=== PATIENT | male | born 1960 | race Caucasian/White ===

== ENCOUNTER 2017-08-03 23:54 | Emergency (ER) | payer OTHER, BC ==
[2017-08-03] MEDS ORDERED: Ketorolac 10 MG Tab PO ONE (23:55)
[2017-08-03] MEDS ORDERED: Acetaminophen/HYDROcodone 325-5 MG Tab PO ONE (23:55)
[2017-08-03 23:58] VITALS: BP 187/99
[2017-08-04] MEDS ORDERED: fentaNYL 100 MCG/2 ML SDV IVPUSH ONE (00:08)
[2017-08-04] MEDS ORDERED: Lactated Ringers 1,000 ML IV ONE (00:09)
[2017-08-04] MEDS ORDERED: Ondansetron 4 MG/2 ML SDV IVPUSH STA (00:19)
--- NOTE | 2017-08-04 00:25 | EDM.PDOC ---
ED HPI GENERAL MEDICAL PROBLEM - General Chief Complaint: Abdominal Pain Stated Complaint: RLQ pain Time Seen by Provider: 08/04/17 00:05 Source of Information: Reports: Patient History Limitations: Reports: No Limitations - History of Present Illness INITIAL COMMENTS - FREE TEXT/NARRATIVE: Manolo is a 57 yo male who presents to the ER with complaints of right lower quadrant pain radiating from the testicle to his flank area. States symptoms started around 9:00pm tonight. [place] fine all day up until onset. States he became nauseated from the pain but no vomiting. States the pain continued to intensify and couldn't take it anymore, which brought him into the ER. States he feels he has the urge to urinate but admits it is mostly just dribbles. Location: Reports: Abdomen, Back (right groin radiating around to right flank), Pelvis Associated Symptoms: Reports: Diaphoresis, Nausea/Vomiting (nauseated). 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 Denies: High Cholesterol Respiratory History: Reports: None Gastrointestinal History: Reports: Cholelithiasis Genitourinary History: Reports: None Musculoskeletal History: Reports: None Neurological History: Reports: None Psychiatric History: Reports: None Social & Family History - Tobacco Use Smoking Status *Q: Never Smoker - Alcohol Use Alcohol Use History: Yes Alcohol Use Frequency: Socially - Recreational Drug Use Recreational Drug Use: No - Living Situation & Occupation Living situation: Reports: , with Spouse Occupation: Employed ED ROS GENERAL - Review of Systems Review Of Systems: See Below Constitutional: Reports: Diaphoresis. Denies: Fever, Chills HEENT: Reports: No Symptoms Respiratory: Reports: No Symptoms Cardiovascular: Reports: No Symptoms GI/Abdominal: Reports: Abdominal Pain (right lower quadrant), Nausea. Denies: Bloody Stool, Diarrhea, Vomiting : Reports: Flank Pain, Urgency, Urinary Retention. Denies: Hematuria Musculoskeletal: Reports: No Symptoms Skin: Reports: No Symptoms ED EXAM, RENAL/ - Physical Exam Exam: See Below Exam Limited By: No Limitations General Appearance: Alert, Mild Distress, Moderate Distress Ears: Normal External Exam, Normal Canal, Normal TMs Nose: Normal Inspection, No Blood Throat/Mouth: Normal Inspection, Normal Lips, Normal Teeth, Normal Gums, Normal Oropharynx, Normal Voice, No Airway Compromise Head: Atraumatic, Normocephalic Neck: Normal Inspection, Supple, Non-Tender Respiratory/Chest: No Respiratory Distress, Lungs Clear, Normal Breath Sounds, No Accessory Muscle Use Cardiovascular: Regular Rate, Rhythm, No Murmur GI/Abdominal: Normal Bowel Sounds, No Organomegaly, No Mass, Pelvis Stable, Tender (right lower quadrant/suprapubic) Back Exam: CVA Tenderness (R). No: CVA Tenderness (L) Neurological: Alert, Oriented, Normal Cognition Psychiatric: Normal Affect, Normal Mood Skin Exam: Warm, Dry, Intact, Normal Color, No Rash Course - Vital Signs Last Recorded V/S: Last Vital Signs Temp 98.5 F 08/03/17 23:55 Pulse 69 08/03/17 23:55 Resp 22 H 08/03/17 23:55 BP 187/99 H 08/03/17 23:55 Pulse Ox 98 08/03/17 23:55 - Orders/Labs/Meds Orders: Active Orders 24 hr Category Date Time Status Abdomen Pelvis wo Cont [CT] Stat Exams 08/04/17 00:50 Ordered UA W/MICROSCOPIC [URIN] Stat Lab 08/04/17 00:08 Uncollected Labs: Laboratory Tests 08/04/17 08/04/17 08/04/17 Range/Units 00:08 00:08 00:50 WBC 10.3 H (5.0-10.0) 10^3/uL RBC 4.32 L (4.50-6.00) 10^6/uL Hgb 14.2 (14.0-18.0) g/dL Hct 39.2 L (40.0-54.0) % MCV 90.7 (82.0-94.0) fL MCH 32.9 H (27.0-32.0) pg MCHC 36.2 (33.0-38.0) g/dL RDW Coeff of Anum 13.1 (11.0-15.0) % Plt Count 180 (150-400) 10^3/uL Neut % (Auto) 75.8 (35-85) % Lymph % (Auto) 13.2 (10-55) % [place] % (Auto) 9.7 (0-16) % Eos % (Auto) 1.0 (0-5) % Baso % (Auto) 0.3 (0-3) % Neut # (Auto) 7.80 H (1.80-7.00) 10^3/uL Lymph # (Auto) 1.36 (1.00-4.80) 10^3/uL [place] # (Auto) 1.00 H (0.00-0.80) 10^3/uL Eos # (Auto) 0.10 (0.00-0.45) 10^3/uL Baso # (Auto) 0.03 10^3/uL Sodium 141 (136-145) mEq/L Potassium 3.8 (3.5-5.0) mEq/L Chloride 104 (98-106) mEq/L Carbon Dioxide 27 (21-32) mmol/L BUN 16 (7-18) mg/dL Creatinine 1.3 (0.7-1.3) mg/dL Est Cr Clr Drug Dosing 56.57 mL/min Estimated GFR (MDRD) 57 L (>=60) mL/min Glucose 134 H D (75-99) mg/dL Calcium 8.5 (8.4-10.1) mg/dL Total Bilirubin 2.8 H (0.0-1.0) mg/dL AST 23 (15-37) U/L ALT 25 (12-78) U/L Alkaline Phosphatase 82 (46-116) U/L C-Reactive Protein 0.3 (0.2-0.8) mg/dL Total Protein 7.4 (6.4-8.2) g/dL Albumin 4.0 (3.4-5.0) g/dL Amylase 39 (25-115) U/L Urine Color Yellow (YELLOW) Urine Appearance Clear (CLEAR) Urine pH 5.0 (4.5-8.0) Ur Specific [place] >= 1.030 H (1.003-1.020) Urine Protein Trace H (NEGATIVE) mg/dL Urine Glucose (UA) Negative (NEGATIVE) mg/dL Urine Ketones Trace H (NEGATIVE) mg/dL Urine Occult Blood Large H (NEGATIVE) Urine Nitrite Negative (NEGATIVE) Urine Bilirubin Negative (NEGATIVE) Urine Urobilinogen 0.2 (0.2-1.0) EU/dL Ur Leukocyte Esterase Negative (NEGATIVE) Meds: Medications Discontinued Medications Generic Name Dose Route Start Last Admin Trade Name Bren PRN Reason Stop Dose Admin Hydrocodone Bitart/Acetaminophen 2 packet 08/04/17 01:38 Take Home: Acetaminophen/Hydrocod, 2 Tab Pack PO 08/04/17 01:39 ONETIME ONE Fentanyl 50 mcg 08/04/17 00:08 08/04/17 00:15 Sublimaze IVPUSH 08/04/17 00:09 50 mcg ONETIME ONE Administration Lactated Ringer's 1,000 mls @ 999 mls/hr 08/04/17 00:09 08/04/17 00:43 Ringers, Lactated IV 08/04/17 01:09 999 mls/hr .BOLUS ONE Administration Ketorolac Tromethamine 30 mg 08/04/17 00:30 08/04/17 00:44 Toradol IVPUSH 08/04/17 00:31 30 mg ONETIME ONE Administration Ketorolac Tromethamine 1 packet 08/04/17 01:38 Take Home: Ketorolac 10 Mg, 4 Tab Pack PO 08/04/17 01:39 ONETIME ONE Ondansetron HCl 8 mg 08/04/17 00:19 08/04/17 00:46 Zofran IVPUSH 08/04/17 00:20 8 mg NOW STA Administration Tamsulosin HCl 0.4 mg 08/04/17 00:51 08/04/17 00:55 Flomax PO 08/04/17 00:52 0.4 mg ONETIME ONE Administration - Re-Assessments/Exams Free Text/Narrative Re-Assessment/Exam: Manolo has been doing well in the ER. CT scan reviewed and appears to be a 3.3mm stone at the ureterovesical junction. Departure - Departure Time of Disposition: 02:04 Disposition: Home, Self-Care 01 Condition: Good Clinical Impression: Kidney stone on right side - Discharge Information Instructions: Kidney Stones, [facility] Forms: ED Department Discharge Additional Instructions: 1) [place] 5/325 - 1 to 2 tablets every 6 hours as needed for moderate pain 2) Toradol 10mg - 1 tablet every 6 hours for pain 3) Zofran 4mg - 1 tablet every 4 hours as needed for nausea 4) Flomax 0.4mg - 1 tablet daily until passing of stone 5) If any fevers, worsening symptoms, increased pain - advise returning to ER 6) Strain urine, if stone passes, recommend bringing in for analysis - Problem List & Annotations (1) Kidney stone on right side SNOMED Code(s): 69864981 Code(s): N20.0 - CALCULUS OF KIDNEY Status: Acute - Problem List Review Problem List Initiated/Reviewed/Updated: Yes - My Orders Last 24 Hours: My Active Orders 08/04/17 00:08 UA W/MICROSCOPIC [URIN] Stat 08/04/17 00:50 Abdomen Pelvis wo Cont [CT] Stat - Assessment/Plan Last 24 Hours: My Active Orders 08/04/17 00:08 UA W/MICROSCOPIC [URIN] Stat 08/04/17 00:50 Abdomen Pelvis wo Cont [CT] Stat Plan: See course and additional instructions. Radiologist confirmed stone at the UV junction. Urine strainer to be sent home with Manolo. Medications and discharge instructions discussed into detail with Manolo and his . Advised if any complications or concerns to return to the emergency room.
[2017-08-04] MEDS ORDERED: Ketorolac 30 MG/ML SDV IVPUSH ONE (00:30)
[2017-08-04] MEDS ORDERED: Tamsulosin 0.4 MG Cap.ER PO ONE (00:51)
[2017-08-04] MEDS ORDERED: Take Home: Acetaminophen/HYDROcodone 325-5 MG, 2 Tab Pack PO ONE (01:38)
[2017-08-04] MEDS ORDERED: Take Home: Ketorolac 10 MG Tab, 4 Tab Pack PO ONE (01:38)
== END 2017-08-04 02:25 | disposition home or self-care (01) ==
LOC: CC.ED 23:54
DX: N13.2 Hydronephrosis with renal and ureteral calculous obstruction (principal); I10 Essential (primary) hypertension; Z79.82 Long term (current) use of aspirin
CPT/HCPCS: 36415; 74176; 80053; 81003; 82150; 85025; 86140; 96361; 96374; 96375; 99284; A9270; J1885; J2405; J3010; J7120

== ENCOUNTER 2025-03-04 20:59 | Emergency (ER) | payer OTHER, BC ==
[2025-03-04 21:04] VITALS: BP 135/68; PULSE 81
[2025-03-04] MEDS: Take Home: Cyclobenzaprine 10 MG Tab, 4 Tab Pack PO ONE (21:55)
== END 2025-03-04 22:05 | disposition home or self-care (01) ==
LOC: CC.ED 20:59
DX: S56.912A Strain of unspecified muscles, fascia and tendons at forearm level, left arm, initial encounter (principal); I10 Essential (primary) hypertension; Z79.899 Other long term (current) drug therapy; Z79.82 Long term (current) use of aspirin; Z90.49 Acquired absence of other specified parts of digestive tract; X50.9XXA Other and unspecified overexertion or strenuous movements or postures, initial encounter
CPT/HCPCS: 73090; 99283; A9270